=== PATIENT | female | born 1970 | race Hispanic/Latino ===

== ENCOUNTER 2016-08-12 06:09 | Observation (INO) | payer OTHER ==
[2016-08-12 06:17] VITALS: TEMP 97.9
[2016-08-12] MEDS ORDERED: Sodium Chloride 0.9% 1,000 ML IV STA (07:40)
[2016-08-12 08:03] LABS: RBC URINE 4 /hpf (0-3); URINE BACTERIA OCC (<OCC); URINE BILIRUBIN NEGATIVE (NEGATIVE); URINE BLOOD NEGATIVE (NEGATIVE); URINE COLOR Yellow (YELLOW); URINE GLUCOSE (UA) NORMAL (Normal); URINE KETONE NEGATIVE (NEGATIVE); URINE LEUKOCYTE ESTERASE NEG Leu/uL (Negative); URINE PROTEIN 1+ mg/dL (NEGATIVE); URINE UROBILINOGEN NORMAL mg/dL (0.2-1.0); WBC URINE 1 /hpf (0-5)
[2016-08-12 08:07] LABS: BASO # 0.1 K/uL (0.0-0.2); BASO % 0.3 % (0.0-2.0); EOS # 0.1 K/uL (0.0-0.7); EOS % 0.7 % (0.0-4.0); HEMATOCRIT 40.1 % (34.0-47.0); LYMPH # 1.2 K/uL (1.0-4.3); LYMPH % 6.7 % (20.0-40.0); MEAN CELL VOLUME 91.4 fL (81.0-99.0); MEAN CORPUSCULAR HEMOGLOBIN 30.7 pg (27.0-31.0); MEAN CORPUSCULAR HGB CONC 33.6 g/dL (33.0-37.0); MEAN PLATELET VOLUME 7.5 fL (7.2-11.7); MONO # 0.9 K/uL (0.0-0.8); MONO % 4.8 % (0.0-10.0); PLATELET COUNT 433 K/uL (130-400); RED CELL DISTRIBUTION WIDTH 12.5 % (11.5-14.5); WHITE BLOOD COUNT 17.7 K/uL (4.8-10.8)
[2016-08-12 08:16] LABS: CHLORIDE 106 mmol/L (98-107); SODIUM 139 mmol/L (132-148)
[2016-08-12 08:20] LABS: ALB/GLOB RATIO 1.2 (1.0-2.1); ALKALINE PHOSPHATASE 73 U/L (38-126); ALT/SGPT 15 U/L (9-52); AST/SGOT 13 U/L (14-36); BILIRUBIN,TOTAL 0.5 mg/dL (0.2-1.3); BLOOD UREA NITROGEN 17 mg/dL (7-17); CALCIUM 8.6 mg/dl (8.6-10.4); CARBON DIOXIDE 23 mmol/L (22-30); GFR AFRICAN-AMERICAN > 60; GLUCOSE,RANDOM 102 mg/dL (65-105)
--- NOTE | 2016-08-12 08:27 | C.PDOC ---
History Of Present Illness 46 y/o F p/w R sided hip pain radiating down the lateral R leg x 2 weeks. Reports mild dysuria this morning. Denies fever, chills, chest pain, dyspnea, nausea, vomiting, diarrhea, rash, trauma. Patient seen by primary care and given prescriptions for XR L/S spine and XR R hip but did not have done because she states she is too busy with two jobs. Time Seen by Provider: 08/12/16 07:15 Chief Complaint (Nursing): Abdominal Pain Past Medical History Vital Signs: Last Vital Signs Temp 97.9 F 08/12/16 06:10 Pulse 83 08/12/16 09:49 Resp 16 08/12/16 09:49 BP 122/74 08/12/16 09:49 Pulse Ox 97 08/12/16 09:49 - Medical History PMH: HTN Denies: Chronic Kidney Disease Family History: States: Unknown Family Hx - Social History Hx Tobacco Use: Yes Hx Alcohol Use: Yes Hx Substance Use: No - Immunization History Hx Tetanus Toxoid Vaccination: Yes (2009) Hx Influenza Vaccination: No Hx Pneumococcal Vaccination: No Review Of Systems Except As Marked, All Systems Reviewed And Found Negative. Constitutional: Negative for: Fever Cardiovascular: Negative for: Chest Pain Physical Exam - Physical Exam Additional Physical Exam Comments: Constitutional: No acute distress. Head: Normocephalic. Atraumatic. Neck: Supple. Cardiovascular: Regular rate. Radial pulse 2+ bilaterally. Chest: No tenderness. Respiratory: Clear to auscultation bilaterally. GI: Soft. Nontender. Nondistended. Back: No CVA tenderness. +Straight leg raise. Musculoskeletal: No tenderness or swelling of extremities. Skin: No rash. Neurologic: Alert, no focal deficit. ED Course And Treatment - Laboratory Results Result Diagrams: 08/12/16 08:00 08/12/16 08:00 O2 Sat by Pulse Oximetry: 99 Against Medical Advice - AMA Patient Left Against Medical Advice: The patient declines admission to the hospital and wishes to leave the Emergency Department. This action is against my medical advice. This decision was made with informed refusal. The patient was told that admission to the hospital is necessary. Explanation of the reasons why were discussed. The risks of leaving were explained to the patient and include, but are not limited to, worsening of known or currently unknown conditions, permanent disability and from undiagnosed or untreated conditions. The patient has the capacity to make this informed decision and understands my explanation of the current medical problem and risks of leaving. The patient voluntarily accepts these risks and signed an AMA form documenting our conversation. The patient was given the opportunity to ask questions and reconsider. The patient was encouraged to return to the Emergency Department at any time for further care. Medical Decision Making Medical Decision Making: With prescriptions for imaging and urinary symptoms, sent for CT. Patient wishes to leave prior to CT results. ED OBSERVATION Discharge: Yes Date of observation admission: 08/12/16 Time of observation admission: 07:41 - Observation admission statement Patient is being placed in observation because:: back pain - Goals of Observation Goals of observation are:: monitoring pending CT - Progress Note Progress Note: [address] No acute distress. [address] 1047 Wishes to leave AMA. Disposition - Disposition Disposition: AGAINST MEDICAL ADVICE Disposition Time: 10:46 Condition: UNKNOWN Instructions: Against Medical Advice (ED), Sciatica (ED) Forms: Work Excuse - Clinical Impression Clinical Impression: Back pain
[2016-08-12 08:29] LABS: EOSINOPHIL 1 % (0-4); NEUTROPHIL 89 % (50-75); TOTAL CELLS COUNTED 100
[2016-08-12] MEDS ORDERED: Iodixanol 320 MG/ML 100 ML BOTTLE IV ONE (09:22)
[2016-08-12 09:50] VITALS: BP 122/74; PULSE 83; RESP 16
[2016-08-12 10:47] VITALS: O2SAT 99
--- NOTE | 2016-08-12 12:57 | CT ---
PROCEDURE: CT abdomen pelvis dated 08/12/2016 HISTORY: Back pain radiating to R hip to R leg, dysuria COMPARISON: No prior study available comparison. TECHNIQUE: Contiguous axial images of the abdomen and pelvis. Oral contrast was administered. No IV contrast given. Coronal and Sagittal reformats generated. Radiation dose: Total exam DLP = 434.30 mGy-cm. This CT exam was performed using one or more of the following dose reduction techniques: Automated exposure control, adjustment of the mA and/or kV according to patient size, and/or use of iterative reconstruction technique. FINDINGS: LOWER THORAX: Mild bibasilar atelectasis and or scarring changes. No focal consolidation effusion or basilar pneumothorax. LIVER: Liver exhibits normal size measuring approximately 16.8 cm in CC dimension. Mild fatty hepatic infiltration. No obvious hepatic mass collection or calcification. Portal and splenic veins are opacified. GALLBLADDER AND BILE DUCTS: Gallbladder is physiologically distended. No evidence of intraluminal gallbladder calculi. . There appears to be some minimal gallbladder wall thickening. Tiny amount of pericholecystic fluid not excluded. . . Common bile duct is prominent. No obvious intraluminal common bile duct stones. Gallbladder ultrasound could be performed for further evaluation if indicated. PANCREAS: The visualized portions of the pancreas appear grossly unremarkable without obvious mass collection or calcification. SPLEEN: Spleen exhibits normal size and attenuation pattern. ADRENALS: There are no adrenal lesions. KIDNEYS AND URETERS: Kidneys exhibit relatively symmetric nephrograms. No evidence of nephrolithiasis or hydronephrosis. There appears to be partial of left-sided extrarenal pelvis. No evidence of nephrolithiasis or hydronephrosis. BLADDER: The urinary bladder appears physiologically distended. No evidence of intraluminal urinary bladder calculi seen. REPRODUCTIVE: Apparent bicornuate uterus on again noted. There is slight irregularity of the endometrial canal which is of uncertain etiology. Followup transvaginal pelvic ultrasound could be performed to further characterize the endometrial canal to exclude endometrial cystic changes or thickening. . There is a large left-sided adnexal cystic structure that measures approximately 4.2 x 3.3 cm in AP and transverse dimension. Hearing loss could represent an adnexal cyst or possibly a pyosalpinx not excluded. Clinical correlation recommended. . In addition, there is a small amount free fluid within the pelvis. Questionable small right sided involuting or hemorrhagic cyst measuring approximately 10.6 mm in and AP dimension. APPENDIX: Appendix appears unremarkable. BOWEL: Evaluation of the bowel is limited due to lack of oral contrast material. Stomach is incompletely distended which presumably accounts slight thick-walled appearance. Visualized loops of small bowel exhibit normal contour and caliber. No evidence mechanical small bowel obstruction. Moderate amount of stool seen throughout the cecum and at ascending colon suggesting mild fecal retention. PERITONEUM: Small amount of free fluid as above LYMPH NODES: Unremarkable. No enlarged lymph nodes. VASCULATURE: Unremarkable. No aortic aneurysm. BONES: Mild multilevel degenerative spondylosis of the lower thoracic and lumbar spine. OTHER FINDINGS: None. IMPRESSION: Large left adnexal cystic structure possibly representing an adnexal cyst however possibility of a hydrosalpinx or pyosalpinx not excluded clinical correlation recommended. Small involuting right ovarian cyst. 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 Consider followup pelvic ultrasound further evaluation. No evidence of nephrolithiasis or hydronephrosis. No evidence to suggest pyelonephritis. Mild fatty hepatic infiltration.
== END 2016-08-12 10:48 | disposition home or self-care (01) ==
LOC: C.ER 06:09 → C.9OBSV 07:41
PROVIDERS: ADMIT Student in an Organized Health Care Education/Training Program; ATTEND Student in an Organized Health Care Education/Training Program
DX: M54.89 Other dorsalgia (principal); R30.0 Dysuria
CPT/HCPCS: 74177; 80053; 81001; 83690; 84703; 85025; 96360; 96374; 99285; G0378; J1885; J7040; Q9967

== ENCOUNTER 2017-03-01 07:16 | Emergency (ER) | payer OTHER ==
--- NOTE | 2017-03-01 07:56 | C.PDOC ---
History Of Present Illness 46 y/o female presents to ED with complaints of right hip pain for "months" but worsening for "few days". Patient states she saw PMD for symptoms and had an MRI with negative results. Patient reports pain is worse when she walks or moves and denies injury to area, numbness, weakness, back pain, abdominal pain or any other complaints at this time. Time Seen by Provider: 03/01/17 07:25 Chief Complaint (Nursing): Hip Pain History Per: Patient History/Exam Limitations: no limitations Onset/Duration Of Symptoms: Days Current Symptoms Are (Timing): Still Present Severity: Mild Past Medical History Reviewed: Historical Data, Nursing Documentation, Vital Signs Vital Signs: Last Vital Signs Temp 98.2 F 03/01/17 09:28 Pulse 87 03/01/17 09:28 Resp 16 03/01/17 09:28 BP 137/84 03/01/17 09:28 Pulse Ox 100 03/01/17 09:28 - Medical History PMH: HTN Surgical History: No Surg Hx Family History: States: No Known Family Hx - Social History Hx Tobacco Use: Yes Hx Alcohol Use: Yes Hx Substance Use: No - Immunization History Hx Tetanus Toxoid Vaccination: No Hx Influenza Vaccination: No Hx Pneumococcal Vaccination: No Review Of Systems Constitutional: Negative for: Fever, Chills Gastrointestinal: Negative for: Vomiting, Abdominal Pain Musculoskeletal: Positive for: Other (Hip pain ). Negative for: Back Pain, Leg Pain Skin: Negative for: Rash Neurological: Negative for: Weakness, Numbness Physical Exam - Physical Exam Appears: Non-toxic, No Acute Distress Skin: Warm, Dry, No Rash Head: Atraumatic, Normacephalic Oral Mucosa: Moist Neck: Normal ROM, Supple Cardiovascular: Rhythm Regular Respiratory: Normal Breath Sounds Back: No CVA Tenderness Extremity: Tenderness (To lateral aspect of right hip), Capillary Refill (<2 seconds), No Deformity, No Swelling Extremity: Bilateral: Normal ROM Neurological/Psych: Oriented x3, Normal Motor, Normal Sensation Gait: Steady ED Course And Treatment O2 Sat by Pulse Oximetry: 97 (RA) Pulse Ox Interpretation: Normal - Other Rad No standard instances X-Ray: Interpreted by Me Interpretation: X-Ray Hip/Pelvis: no fx Progress Note: Treated with motrin 600 mg PO. On re-evaluation ambulating with steady gait. Discharged and advised ortho follow up Reassessment Condition: Improved Medical Decision Making Medical Decision Making: Plan: Right hip xray, POC urine Preg, Motrin ordered Progress: Upon normal lab results patient will be discharged and advised follow up with Ortho Disposition Counseled Patient/Family Regarding: Studies Performed, Diagnosis, Need For Followup, Rx Given - Disposition Referrals: Tamia Crawford MD [Staff Provider] - Disposition: HOME/ ROUTINE Disposition Time: 09:20 Condition: GOOD Additional Instructions: Follow up with PMD and orthopedic for further evaluation Return to ED if any increase symptoms Prescriptions: Ibuprofen [Motrin Tab] 400 mg PO TID PRN #12 tab PRN Reason: Pain Instructions: Hip Pain (ED) Forms: [employer] (Icelandic) - Clinical Impression Clinical Impression: Hip pain - PA / INS[employer]OR [employer] / Resident Statement MD/DO has reviewed & agrees with the documentation as recorded. - Scribe Statement The provider has reviewed the documentation as recorded by the Sarahibkiara Mitchell All medical record entries made by the Sarahibkiara were at my direction and personally dictated by me. I have reviewed the chart and agree that the record accurately reflects my personal performance of the history, physical exam, medical decision making, and the department course for this patient. I have also personally directed, reviewed, and agree with the discharge instructions and disposition.
[2017-03-01 09:30] VITALS: BP 137/84; PULSE 87; RESP 16; TEMP 98.2
--- NOTE | 2017-03-01 10:24 | RAD ---
Indication: Pain Right hip with pelvis Comparison: CT abdomen and pelvis with contrast performed 08/12/16 Findings: No acute displaced fracture or dislocation identified. Sacroiliac joints appear intact. Soft tissues appear unremarkable. No evidence of radiopaque foreign body. Impression: No acute displaced fracture or dislocation evident. If high clinical index of suspicion, suggest cross-sectional imaging for further evaluation. Otherwise, if symptoms persist or if there is continued clinical concern, x-ray follow-up in 7-10 days should be considered.
[2017-03-01 14:51] VITALS: O2SAT 97
== END 2017-03-01 09:30 | disposition home or self-care (01) ==
LOC: C.ER 07:16
DX: M25.551 Pain in right hip (principal)